=== PATIENT | male | born 2000 ===

== ENCOUNTER 2019-04-28 18:29 | Emergency (ER) | payer SELFPAY ==
[2019-04-28 18:51] LABS: Bilirubin Negative (Negative); Blood, Urine Negative (Negative); Clarity CLEAR (Clear); Glucose, Urine (Dipstick) Negative (Negative); Leukocyte Negative (Negative); Nitrite Negative (Negative); Protein, Urine (Dipstick) Negative (Neg-Trace); Specific Gravity, Urine 1.004 (1.002-1.036); Urobilinogen 0.2 mg/dL (0.2-1.0); pH, Urine 7.5 (5.0-9.0)
[2019-04-30 19:29] LABS: Chlam.trachomatis by PCR,Urine Not Detected (NotDetected)
== END 2019-04-28 19:04 | disposition home or self-care (01) ==
LOC: ERS 18:29
DX: N34.2 Other urethritis (principal)
CPT/HCPCS: 81003; 87491; 87591; 99283